=== PATIENT | female | born 1965 | race Caucasian/White ===

== ENCOUNTER 2017-06-13 11:31 | Emergency (ER) | payer OTHER ==
[2017-06-13] MEDS ORDERED: IBUPROFEN 400 MG TABLET (FP) PO ONE ×2 (11:44→12:05)
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
[2017-06-13 11:55] VITALS: BP 136/88; PULSE 77; TEMP 98.2; BMI 30.4
== END 2017-06-13 12:59 | disposition home or self-care (01) ==
LOC: FER 11:31
DX: M25.522 Pain in left elbow (principal); M25.512 Pain in left shoulder; I10 Essential (primary) hypertension; E78.5 Hyperlipidemia, unspecified; W51.XXXA Accidental striking against or bumped into by another person, initial encounter; Y93.89 Activity, other specified; Y92.9 Unspecified place or not applicable
CPT/HCPCS: 73030-TC-LT-FY; 73070-TC-LT-FY; 99281-25